=== PATIENT | female | born 1975 | race Caucasian/White ===

== ENCOUNTER 2017-06-05 12:16 | Emergency (ER) | payer MEDICAID ==
[~2017-06-05] VITALS: Ht 167.6 cm; Wt 154.5 kg
[~2017-06-05 12:16] MED LIST: ACET-784 PO
[2017-06-05 13:11] LABS: BASOPHILS # (AUTO) 0.02 K/uL (0.00-0.20); BASOPHILS % (AUTO) 0.2 % (0.0-2.0); EOSINOPHILS # (AUTO) 0.14 K/uL (0.00-0.70); HEMATOCRIT 39.4 % (36-46); HEMOGLOBIN 13.1 g/dL (12.0-16.0); LYMPHOCYTES # (AUTO) 2.3 K/uL (1.0-4.8); LYMPHOCYTES % (AUTO) 29.3 % (22.0-44.0); MEAN CORPUSCULAR HEMOGLOBIN 29.1 pg (26.0-34.0); MEAN CORPUSCULAR HGB CONC 33.4 G/dL (31.0-37.0); MEAN CORPUSCULAR VOLUME 87 fL (80-100); MONOCYTES # (AUTO) 0.5 K/uL (0.1-1.0); NEUTROPHILS # (AUTO) 4.9 K/uL (1.8-7.7); NEUTROPHILS % (AUTO) 62.7 % (40.0-70.0); PLATELET COUNT (AUTO) 265 K/uL (150-450); RED BLOOD CELL COUNT(AUTO) 4.51 MIL/uL (4.00-5.20); RED CELL DISTRIBUTION WIDTH 15.4 % (11.5-14.5); WHITE BLOOD COUNT (AUTO) 7.8 K/uL (4.5-11.0)
[2017-06-05 13:19] LABS: ANION GAP 9 mmol/L (8-16); CALCIUM, TOTAL 9.5 mg/dL (8.8-10.5); CARBON DIOXIDE 22 mmol/L (22-29); CHLORIDE 105 mmol/L (98-107); CREATININE 0.61 mg/dL (0.60-1.30); GLOMERULAR FILTR. RATE CALC > 60 mL/min (>60); POTASSIUM 4.1 mmol/L (3.5-5.1); SODIUM SERUM 136 mmol/L (136-145); UREA NITROGEN, BLOOD 11 mg/dL (7-18)
[2017-06-05 13:25] LABS: ALANINE AMINOTRANSFERASE 149 U/L (12-78); ALBUMIN 3.5 g/dL (3.4-5.0); ASPARTATE AMINOTRANSFERASE 94 U/L (15-37); BILIRUBIN,TOTAL 0.4 mg/dL (0.1-1.0); TOTAL PROTEIN, SERUM 7.8 g/dL (6.4-8.2)
[2017-06-05 14:30] VITALS: BP 145/99
== END 2017-06-05 14:34 | disposition home or self-care (01) ==
LOC: EMS 12:18
DX: K42.9 Umbilical hernia without obstruction or gangrene (principal); I10 Essential (primary) hypertension
CPT/HCPCS: 99284

== ENCOUNTER 2017-10-19 11:20 | Emergency (ER) | payer SELFPAY ==
[~2017-10-19] VITALS: Ht 153 cm; Wt 118.2 kg
[2017-10-19] MEDS ORDERED: LIDOCAINE HCL 5% TRANSDERMAL PATCH TD ONE (13:15)
[2017-10-19] MEDS ORDERED: METHOCARBAMOL 500 MG TABLET PO ONE (13:15)
[2017-10-19 15:05] VITALS: BP 135/74
== END 2017-10-19 15:06 | disposition home or self-care (01) ==
LOC: EMS 11:24
DX: S13.4XXA Sprain of ligaments of cervical spine, initial encounter (principal); R07.81 Pleurodynia; R03.0 Elevated blood-pressure reading, without diagnosis of hypertension; V49.40XA Driver injured in collision with unspecified motor vehicles in traffic accident, initial encounter; Y93.89 Activity, other specified; Y92.89 Other specified places as the place of occurrence of the external cause; Y99.8 Other external cause status
CPT/HCPCS: 71046; 72040; 99284

== ENCOUNTER 2017-11-24 08:06 | Emergency (ER) | payer MEDICAID ==
[~2017-11-24] VITALS: Ht 154.9 cm; Wt 125.0 kg
[2017-11-24] MEDS ORDERED: METOPROLOL TARTRATE 5 MG/5 ML VIAL IVP ONE (09:30)
[2017-11-24] MEDS ORDERED: ASPIRIN 81 MG CHEWABLE TABLET PO ONE (09:30)
[2017-11-24 09:54] LABS: BASOPHILS % (AUTO) 0.8 % (0.0-2.0); EOSINOPHILS % (AUTO) 1.7 % (1.0-6.0); HEMATOCRIT 37.1 % (36-46); HEMOGLOBIN 12.4 g/dL (12.0-16.0); LYMPHOCYTES # (AUTO) 2.7 K/uL (1.0-4.8); LYMPHOCYTES % (AUTO) 24.8 % (22.0-44.0); MEAN CORPUSCULAR HEMOGLOBIN 27.6 pg (26.0-34.0); MEAN CORPUSCULAR HGB CONC 33.5 G/dL (31.0-37.0); MEAN CORPUSCULAR VOLUME 82 fL (80-100); MONOCYTES # (AUTO) 0.7 K/uL (0.1-1.0); MONOCYTES % (AUTO) 6.7 % (2.0-9.0); NEUTROPHILS # (AUTO) 7.2 K/uL (1.8-7.7); PLATELET COUNT (AUTO) 299 K/uL (150-450); RED CELL DISTRIBUTION WIDTH 14.8 % (11.5-14.5)
[2017-11-24 10:02] LABS: ANION GAP 8 mmol/L (8-16); CALCIUM, TOTAL 9.6 mg/dL (8.8-10.5); CARBON DIOXIDE 24 mmol/L (22-29); CHLORIDE 104 mmol/L (98-107); CREATININE 0.71 mg/dL (0.60-1.30); GLOMERULAR FILTR. RATE CALC > 60 mL/min (>60); GLUCOSE,RANDOM 94 mg/dL (70-110); POTASSIUM 4.4 mmol/L (3.5-5.1); SODIUM SERUM 136 mmol/L (136-145); UREA NITROGEN, BLOOD 11 mg/dL (7-18)
[2017-11-24 10:07] LABS: ALANINE AMINOTRANSFERASE 61 U/L (12-78); ALBUMIN 3.2 g/dL (3.4-5.0); ALKALINE PHOSPHATASE 123 U/L (46-116); ASPARTATE AMINOTRANSFERASE 45 U/L (15-37); BILIRUBIN,TOTAL 0.4 mg/dL (0.1-1.0); CREATINE KINASE, TOTAL 70 U/L (26-192); TOTAL PROTEIN, SERUM 7.8 g/dL (6.4-8.2)
[2017-11-24 10:16] LABS: B-TYPE NATRIURETIC PEPTIDE 16 pg/mL (0-100)
[2017-11-24 11:19] LABS: BILIRUBIN,URINE NEGATIVE (NEGATIVE); GLUCOSE, URINE (UA) NEGATIVE (NEGATIVE); KETONES,URINE NEGATIVE (NEGATIVE); LEUKOCYTE ESTERASE ,URINE NEGATIVE (NEGATIVE); NITRATE,URINE NEGATIVE (NEGATIVE); PROTEIN,URINE NEGATIVE (NEGATIVE); UROBILINOGEN,URINE 0.2 mg/dL (<=1.0)
[2017-11-24 11:31] LABS: OCCULT BLOOD,URINE TRACE (NEGATIVE)
[2017-11-24 11:32] LABS: APPEARANCE,URINE CLEAR (CLEAR)
[2017-11-24 11:35] LABS: BACTERIA,URINE None Seen /HPF (None Seen); RBC,URINE 0-2 /HPF (0-2); SQUAMOUS EPITHELIAL CELL,UR Few /LPF (None Seen); WBC,URINE None Seen /HPF (0-5)
[2017-11-24 13:30] VITALS: BP 134/81
[2017-11-24] MEDS ORDERED: ACETAMINOPHEN 500 MG TABLET PO ONE (13:30)
== END 2017-11-24 13:42 | disposition home or self-care (01) ==
LOC: EMS 08:07
DX: R07.9 Chest pain, unspecified (principal); I51.7 Cardiomegaly; M54.12 Radiculopathy, cervical region; I10 Essential (primary) hypertension
CPT/HCPCS: 36415; 71045; 80053; 81001; 81025; 82550; 83880; 84484; 85025; 93005; 96374; 99285; J3490

== ENCOUNTER 2019-05-04 21:13 | Emergency (ER) | payer MEDICAID ==
[~2019-05-04] VITALS: Ht 152.4 cm; Wt 136.4 kg
[2019-05-04] MEDS ORDERED: SODIUM CHLORIDE 0.9% 1,000 ML IV ONE (22:08)
[2019-05-04] MEDS ORDERED: ONDANSETRON HCL 4 MG/2 ML VIAL IVP ONE (22:15)
[2019-05-04 22:37] LABS: BASOPHILS % (AUTO) 0.7 % (0.0-2.0); EOSINOPHILS % (AUTO) 2.9 % (1.0-6.0); HEMATOCRIT 36.4 % (36-46); HEMOGLOBIN 11.8 g/dL (12.0-16.0); LYMPHOCYTES # (AUTO) 2.7 K/uL (1.0-4.8); LYMPHOCYTES % (AUTO) 31.7 % (22.0-44.0); MEAN CORPUSCULAR HEMOGLOBIN 27.3 pg (26.0-34.0); MEAN CORPUSCULAR HGB CONC 32.5 G/dL (31.0-37.0); MEAN CORPUSCULAR VOLUME 84 fL (80-100); MONOCYTES # (AUTO) 0.6 K/uL (0.1-1.0); MONOCYTES % (AUTO) 7.1 % (2.0-9.0); NEUTROPHILS # (AUTO) 4.9 K/uL (1.8-7.7); NEUTROPHILS % (AUTO) 57.6 % (40.0-70.0); PLATELET COUNT (AUTO) 278 K/uL (150-450); RED BLOOD CELL COUNT(AUTO) 4.34 MIL/uL (4.00-5.20); RED CELL DISTRIBUTION WIDTH 16.2 % (11.5-14.5)
[2019-05-04 22:40] LABS: APPEARANCE,URINE CLEAR (CLEAR); BILIRUBIN,URINE NEGATIVE (NEGATIVE); GLUCOSE, URINE (UA) NEGATIVE (NEGATIVE); KETONES,URINE NEGATIVE (NEGATIVE); LEUKOCYTE ESTERASE ,URINE TRACE (NEGATIVE); NITRATE,URINE NEGATIVE (NEGATIVE); OCCULT BLOOD,URINE LARGE (NEGATIVE); PROTEIN,URINE NEGATIVE (NEGATIVE); UROBILINOGEN,URINE 0.2 mg/dL (<=1.0)
[2019-05-04 22:42] LABS: ANION GAP 8 mmol/L (8-16); CALCIUM, TOTAL 9.2 mg/dL (8.8-10.5); CARBON DIOXIDE 26 mmol/L (22-29); CHLORIDE 106 mmol/L (98-107); CREATININE 0.81 mg/dL (0.60-1.30); GLOMERULAR FILTR. RATE CALC > 60 mL/min (>60); GLUCOSE,RANDOM 149 mg/dL (70-110); POTASSIUM 3.9 mmol/L (3.5-5.1); SODIUM SERUM 140 mmol/L (136-145); UREA NITROGEN, BLOOD 11 mg/dL (7-18)
[2019-05-04 22:53] LABS: ALANINE AMINOTRANSFERASE 78 U/L (12-78); ALBUMIN 3.2 g/dL (3.4-5.0); ALKALINE PHOSPHATASE 151 U/L (46-116); ASPARTATE AMINOTRANSFERASE 55 U/L (15-37); BILIRUBIN,TOTAL 0.2 mg/dL (0.1-1.0); HCG,QUANTITATIVE < 1 mIU/mL (0-6); LIPASE 115 U/L (73-393); TOTAL PROTEIN, SERUM 7.4 g/dL (6.4-8.2)
[2019-05-04 23:09] LABS: BACTERIA,URINE Many /HPF (None Seen); SQUAMOUS EPITHELIAL CELL,UR Few /LPF (None Seen); WBC,URINE 0-2 /HPF (0-5)
[2019-05-05] MEDS ORDERED: TraMADol HCL 50 MG TABLET PO ONE (00:45)
[2019-05-05 02:24] VITALS: BP 132/92
== END 2019-05-05 02:27 | disposition home or self-care (01) ==
LOC: EMS 21:14
DX: R10.12 Left upper quadrant pain (principal)
CPT/HCPCS: 36415; 74176; 80053; 81001; 83690; 84702; 85025; 87077; 87086; 87186; 96374; 99284; J2405; J7030

== ENCOUNTER 2021-09-29 07:07 | Emergency (ER) | payer MEDICAID ==
[~2021-09-29] VITALS: Ht 154.9 cm; Wt 125.0 kg
[2021-09-29 07:12] VITALS: BP 165/85
[2021-09-29 07:56] LABS: COVID AG,FIA SOURCE NASAL SWAB
[2021-09-29] MEDS ORDERED: BENZ1LOZ68 PO (08:50)
== END 2021-09-29 09:02 | disposition home or self-care (01) ==
LOC: EMS 07:16
DX: J02.8 Acute pharyngitis due to other specified organisms (principal); H92.03 Otalgia, bilateral; B97.89 Other viral agents as the cause of diseases classified elsewhere; Z20.822 Contact with and (suspected) exposure to COVID-19
CPT/HCPCS: 87430; 99283

== ENCOUNTER 2024-07-22 13:33 | Emergency (ER) | payer MEDICAID, OTHER ==
[~2024-07-22] VITALS: Ht 160 cm; Wt 130.0 kg
[~2024-07-22 13:33] MED LIST changes: -ACET-784 PO; +BENZ1LOZ50 PO
[2024-07-22 13:52] VITALS: TEMP 99.2
[2024-07-22] MEDS ORDERED: CHOL200059 PO (13:55)
[2024-07-22] MEDS ORDERED: TIRZ10PE3 SQ (13:55)
[2024-07-22] MEDS ORDERED: OXYC5TAB3 PO (13:55)
[2024-07-22] MEDS ORDERED: BUPR-49 PO (13:55)
[2024-07-22] MEDS ORDERED: SENN-374 PO (13:55)
[2024-07-22 14:57] LABS: BASOPHILS % (AUTO) 0.1 % (0.0-2.0); EOSINOPHILS % (AUTO) 0.1 % (1.0-6.0); HEMATOCRIT 39.9 % (36-46); LYMPHOCYTES % (AUTO) 5.2 % (22.0-44.0); MEAN CORPUSCULAR HEMOGLOBIN 29.6 pg (26.0-34.0); MEAN CORPUSCULAR HGB CONC 32.6 G/dL (31.0-37.0); MEAN CORPUSCULAR VOLUME 91 fL (80-100); MONOCYTES # (AUTO) 0.6 K/uL (0.1-1.0); MONOCYTES % (AUTO) 3.2 % (2.0-9.0); PLATELET COUNT (AUTO) 196 K/uL (150-450); RED CELL DISTRIBUTION WIDTH 14.5 % (11.5-14.5); WHITE BLOOD COUNT (AUTO) 19.7 K/uL (4.5-11.0)
[2024-07-22 15:09] LABS: NEUTROPHILS % (AUTO) 91.4 % (40.0-70.0)
[2024-07-22 15:39] LABS: ANION GAP 12 mmol/L (8-16); CALCIUM, TOTAL 8.8 mg/dL (8.8-10.5); CARBON DIOXIDE 24 mmol/L (22-29); CHLORIDE 101 mmol/L (98-107); CREATININE 0.92 mg/dL (0.60-1.30); GLOMERULAR FILTR. RATE CALC > 60 mL/min (>60); GLUCOSE,RANDOM 141 mg/dL (70-110); POTASSIUM 4.1 mmol/L (3.5-5.1); SODIUM SERUM 137 mmol/L (136-145); UREA NITROGEN, BLOOD 15 mg/dL (7-18)
[2024-07-22] MEDS: 0.9% SODIUM CHLORIDE 10 ML SYRINGE IVP PRN (15:47)
[2024-07-22 15:55] LABS: ALANINE AMINOTRANSFERASE 42 U/L (12-78); ALBUMIN 2.5 g/dL (3.4-5.0); ALKALINE PHOSPHATASE 162 U/L (46-116); ASPARTATE AMINOTRANSFERASE 32 U/L (15-37); BILIRUBIN,TOTAL 2.2 mg/dL (0.1-1.0); HCG,QUANTITATIVE 1 mIU/mL (0-6); LIPASE 28 U/L (16-77); TOTAL PROTEIN, SERUM 6.4 g/dL (6.4-8.2)
[2024-07-22] MEDS: SODIUM CHLORIDE 0.9% 3,900 ML IV ONE (16:00)
[2024-07-22] MEDS: PIPERACILLIN/TAZO 3.375 GM/D5W 50 ML IV ONE (16:00)
[2024-07-22 16:12] LABS: PROTHROMBIN TIME 13.6 SEC (9.4-11.6); TROPONIN I-HIGH SENSITIVITY Less Than 4 ng/L (<51)
[2024-07-22 16:25] LABS: LACTIC ACID 1.2 mmol/L (0.4-2.0)
[2024-07-22 18:06] LABS: APPEARANCE,URINE CLEAR (CLEAR); BILIRUBIN,URINE NEGATIVE (NEGATIVE); COLOR,URINE YELLOW (YELLOW); GLUCOSE, URINE (UA) NEGATIVE (NEGATIVE); KETONES,URINE NEGATIVE (NEGATIVE); LEUKOCYTE ESTERASE ,URINE NEGATIVE (NEGATIVE); NITRATE,URINE NEGATIVE (NEGATIVE); OCCULT BLOOD,URINE TRACE (NEGATIVE); PH,URINE 6.5 (5.0-8.0); PROTEIN,URINE NEGATIVE (NEGATIVE); SPECIFIC GRAVITIY, URINE 1.014 (1.003-1.030); UROBILINOGEN,URINE <=1.0 mg/dL (<=1.0)
[2024-07-22] MEDS: MORPHINE SULFATE 4 MG/ML SYRINGE IVP ONE (18:20)
[2024-07-22 18:28] LABS: BACTERIA,URINE None Seen /HPF (None Seen); WBC,URINE 0-2 /HPF (0-5)
[2024-07-22 18:29] LABS: SQUAMOUS EPITHELIAL CELL,UR Moderate /LPF (None Seen)
[2024-07-22] MEDS: HYDROmorphone HCL 2 MG/ML SYRINGE IVP ONE (19:10)
[2024-07-23] MEDS: HYDROmorphone HCL 2 MG/ML SYRINGE IVP ONE (00:56)
[2024-07-23 02:24] VITALS: BP 130/60; PULSE 115; RESP 23; O2SAT 96
== END 2024-07-23 04:40 | disposition short-term general hospital (02) ==
LOC: EMS 13:33
DX: D68.9 Coagulation defect, unspecified (principal); R10.84 Generalized abdominal pain; Z79.899 Other long term (current) drug therapy
CPT/HCPCS: 99291; 74176; 96365; 96375; 80048; 80076; 81001; 83605; 83690; 84484; 84702; 85025; 85610; 87040; 74022; 93005; 84145; 96376; 36415; J1171 ×2; J2270; J2543